=== PATIENT | female | born 1985 | race Caucasian/White ===

== ENCOUNTER 2017-10-04 09:02 | Emergency (ER) | payer OTHER ==
[2017-10-04 09:07] VITALS: O2SAT 99
--- NOTE | 2017-10-04 09:22 | ERPHSYRPT ---
- History of Present Illness Time Seen by Provider: 10/04/17 09:17 Source: patient Exam Limitations: no limitations Patient Subjective Stated Complaint: PT STATES SHE DEVELOPED A TOOTHACHE ON . STATES SHE WOKE UP THIS MORNING WITH RIGHT FACIAL SWELLING. Triage Nursing Assessment: PT PINK, WARM, DRY. EDEMA NOTED TO RIGHT FACE. PT AFEBRILE. Physician History: The patient is a 32-year-old female complaining of increasing dental pain since yesterday. This morning she has some mild facial swelling as well. She has very poor dentition. Her past medical history is unremarkable except for episodes of dental pain and dental abscesses. Timing/Duration: gradual onset Severity: severe ENT Location: dental Prearrival Treatment: over the counter meds Modifying Factors: Improves With: nothing Associated Symptoms: facial pain/swelling, tooth pain Allergies/Adverse Reactions: Penicillins Allergy (Verified 10/04/17 09:07) Hx Tetanus, Diphtheria Vaccination/Date Given: Yes (UP TO DATE) Hx Influenza Vaccination/Date Given: No Hx Pneumococcal Vaccination/Date Given: No Immunizations Up to Date: Yes - Review of Systems Constitutional: No Fever, No Chills Eyes: No Symptoms Ears, Nose, & Throat: Mouth Pain Respiratory: No Cough, No Dyspnea Cardiac: No Chest Pain, No Edema, No Syncope Abdominal/Gastrointestinal: No Abdominal Pain, No Nausea, No Vomiting, No Diarrhea Genitourinary Symptoms: No Dysuria Musculoskeletal: No Back Pain, No Neck Pain Skin: No Rash Neurological: No Dizziness, No Focal Weakness, No Sensory Changes Psychological: No Symptoms Endocrine: No Symptoms Hematologic/Lymphatic: No Symptoms Immunological/Allergic: No Symptoms All Other Systems: Reviewed and Negative - Past Medical History Pertinent Past Medical History: No - Past Surgical History Past Surgical History: Yes Female Surgical History: Tubal Ligation, Other - Social History Smoking Status: Current every day smoker How long have you smoked: 21 Exposure to second hand smoke: No Drug Use: none Patient Lives Alone: No - Female History Hx Last Menstrual Period: SEP 26 Hx Now: No - Nursing Vital Signs Nursing Vital Signs: Initial Vital Signs Temperature 99.2 F 10/04/17 09:03 Pulse Rate 100 H 10/04/17 09:03 Respiratory Rate 20 10/04/17 09:03 Blood Pressure 130/59 10/04/17 09:03 O2 Sat by Pulse Oximetry 99 10/04/17 09:03 Pain Scale Pain Intensity 9 - Physical Exam General Appearance: moderate distress Eye Exam: bilateral eye: normal inspection Ear Exam: bilateral ear: auricle normal Nasal Exam: normal inspection Throat Exam: dental tenderness (very poor dentition. tenderness to right upper incisor with surrounding red and swollen gums.), maxillary swelling Neck Exam: supple Cardiovascular/Respiratory Exam: normal breath sounds, regular rate/rhythm Abdominal Exam: non-tender, soft Neurologic Exam: alert, oriented x 3, sensation nml, No motor deficits Skin Exam: normal color, warm, dry SpO2 Interpretation: normal SpO2: 99 Oxygen Delivery: Room Air - Departure Time of Disposition: 09:25 Departure Disposition: Home Clinical Impression: Dental abscess Clinical Impression: (Ruled Out): Dental implant pain Condition: Stable Critical Care Time: No Additional Instructions: You have a dental abscess. Take clindamycin 300 mg 4 times a day for 10 days. Take Tylenol No. 3 one tablet every 4-6 hours as needed for pain. Continue to take ibuprofen 800 mg every 8 hours as needed. Follow-up as soon as you can with a dentist. Prescriptions: Clindamycin HCl 1 cap PO QID #40 capsule Codeine Phosphate/APAP #3 [Tylenol #3 Tablet] 1 tab PO Q4-6HPRN PRN #10 tablet PRN Reason: Pain
[2017-10-04 09:45] VITALS: BP 132/78; PULSE 97
== END 2017-10-04 09:45 | disposition home or self-care (01) ==
LOC: ED 09:02
DX: K04.7 Periapical abscess without sinus (principal)
CPT/HCPCS: 99283

== ENCOUNTER 2017-10-06 14:54 | Emergency (ER) | payer OTHER ==
[2017-10-06] MEDS ORDERED: CLEOCIN 150 MG CAPSULE PO ONE (15:08)
[2017-10-06] MEDS ORDERED: NORCO 5/325 MG PO ONE (15:08)
--- NOTE | 2017-10-06 15:14 | ERPHSYRPT ---
- History of Present Illness Time Seen by Provider: 10/06/17 14:59 Source: patient Physician History: CC: tooth abscess hx: 32 y/o patient with right sided toothache and abscess with right facial swelling and pain. She is a smoker. Not . Pain is worse and severe. She had PCN allergy as a child. She was here two days ago and was given Rx for cleocin and codiene. Did not fill the cleocin as her insurance was ineffective. No fever or chills. She has no dentist. No diff breathing or swallowing. Allergies/Adverse Reactions: Penicillins Allergy (Verified 10/06/17 15:14) Hx Tetanus, Diphtheria Vaccination/Date Given: Yes (UP TO DATE) Hx Influenza Vaccination/Date Given: No Hx Pneumococcal Vaccination/Date Given: No - Review of Systems Constitutional: Malaise, No Fever Ears, Nose, & Throat: Mouth Pain, Mouth Swelling Respiratory: No Dyspnea Abdominal/Gastrointestinal: No Vomiting, No Diarrhea Skin: No Rash Neurological: No Headache All Other Systems: Reviewed and Negative - Past Medical History Pertinent Past Medical History: No - Past Surgical History Past Surgical History: Yes Female Surgical History: Tubal Ligation, Other - Social History Smoking Status: Current every day smoker How long have you smoked: 21 Exposure to second hand smoke: No Drug Use: none Patient Lives Alone: No - Nursing Vital Signs Nursing Vital Signs: Initial Vital Signs Temperature 98.3 F 10/06/17 15:09 Pulse Rate 99 H 10/06/17 15:09 Respiratory Rate 16 10/06/17 15:09 Blood Pressure 132/89 10/06/17 15:09 O2 Sat by Pulse Oximetry 99 10/06/17 15:09 Pain Scale Pain Intensity 7 - Physical Exam General Appearance: alert Eye Exam: bilateral eye: PERRL, EOMI (no double vision) Nasal Exam: normal inspection Throat Exam: pharynx normal Neck Exam: supple, full range of motion Cardiovascular/Respiratory Exam: normal breath sounds, regular rate/rhythm Neurologic Exam: alert, oriented x 3, cooperative Skin Exam: warm, dry Comments: right facial swelling and tenderness without eduardo erythema and no crepitus. - Course Nursing assessment & vital signs reviewed: Yes Ordered Tests: Medication Summary Discontinued Medications Generic Name Dose Route Start Last Admin Trade Name Freq PRN Reason Stop Dose Admin Hydrocodone Bitart/Acetaminophen 1 tab 10/06/17 15:08 10/06/17 15:20 [place] 5/325 Mg PO 10/06/17 15:09 1 tab STAT ONE Administration Hydrocodone Bitart/Acetaminophen Confirm 10/06/17 15:19 [place] 5/325 Mg Administered 10/06/17 15:20 Dose 1 tab .ROUTE .STK-MED ONE Clindamycin HCl 300 mg 10/06/17 15:08 10/06/17 15:20 Cleocin 150 Mg Capsule PO 10/06/17 15:09 300 mg STAT ONE Administration Clindamycin HCl Confirm 10/06/17 15:19 Cleocin 150 Mg Capsule Administered 10/06/17 15:20 Dose 300 mg .ROUTE .STK-MED ONE - Progress Progress Note: 10/06/17 15:13 She has apparent dental abscess. She is a smoker. Could n0t start clindamicin so is worse without abtx. She declines CT and IV at this time. Explained need for abtx and dental follow up. 10/06/17 15:27 Called [facility] and they ran her HIP insurance and called for a BIN number. She can now afford Rx. She declines IV or CT. Will release with advise for dental follow up and cleocin. Counseled pt/family regarding: diagnosis, need for follow-up - Departure Time of Disposition: 15:28 Departure Disposition: Home Clinical Impression: odontogenic abscess, Smoker Condition: Stable Critical Care Time: No Referrals: DOCTOR,NO FAMILY [Primary Care Provider] - Instructions: Dental Pain, Tooth Decay Additional Instructions: See dentist in 1-2 days. Get clindamicin Rx from [facility] now. Ibuprofen as previously directed. Return for double vision, trouble breathing, trouble swallowing or problems.
[2017-10-06 15:15] VITALS: BP 132/89; PULSE 99; O2SAT 99
[2017-10-06] MEDS ORDERED: CLEOCIN 150 MG CAPSULE ONE (15:19)
[2017-10-06] MEDS ORDERED: NORCO 5/325 MG ONE (15:19)
== END 2017-10-06 15:54 | disposition home or self-care (01) ==
LOC: ED 14:54
DX: K04.7 Periapical abscess without sinus (principal); F17.200 Nicotine dependence, unspecified, uncomplicated
CPT/HCPCS: 99283; A9270-GY

== ENCOUNTER 2019-06-24 17:53 | Emergency (ER) | payer MEDICAID, OTHER ==
[2019-06-24 17:59] VITALS: BP 115/92; PULSE 97; O2SAT 98
--- NOTE | 2019-06-24 18:11 | ERPHSYRPT ---
- History of Present Illness Time Seen by Provider: 06/24/19 18:10 Source: patient, family Exam Limitations: no limitations Patient Subjective Stated Complaint: Pt states "I was bit by a dog." Triage Nursing Assessment: Pt presented alert and oriented X 3, skin pwd Pt ambulates with an uprigth steady gait, able to speak in clear full sentencs. Pt in no apparent respiratory distress. Pt has punctures to left and left leg and buttock Physician History: 34 y/o white female methamphetamine user presents after dog bite to forearm and buttock. 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 pt also has pain in left wrist. pt is allergic to pcn. pt has had keflex in past without issues. dogs immunizations utd 03/02/19. Timing/Duration: today Quality: painful Severity: moderate Location: extremities, other (buttock) Possible Causes: other (dog bite) Associated Symptoms: other (painful dog bite sites) Allergies/Adverse Reactions: Penicillins Allergy (Verified 10/06/17 15:14) Hx Tetanus, Diphtheria Vaccination/Date Given: No Hx Influenza Vaccination/Date Given: No Hx Pneumococcal Vaccination/Date Given: No Immunizations Up to Date: Yes - Review of Systems Constitutional: No Symptoms Eyes: No Symptoms Ears, Nose, & Throat: No Symptoms Respiratory: No Symptoms Cardiac: No Symptoms Abdominal/Gastrointestinal: No Symptoms Genitourinary Symptoms: No Symptoms Musculoskeletal: No Symptoms Skin: No Symptoms Neurological: No Symptoms Psychological: No Symptoms Endocrine: No Symptoms Hematologic/Lymphatic: No Symptoms Immunological/Allergic: No Symptoms All Other Systems: Reviewed and Negative - Past Medical History Pertinent Past Medical History: No Neurological History: No Pertinent History ENT History: No Pertinent History Cardiac History: No Pertinent History Respiratory History: No Pertinent History Endocrine Medical History: No Pertinent History Musculoskeletal History: No Pertinent History GI Medical History: No Pertinent History History: No Pertinent History Psycho-Social History: No Pertinent History Female Reproductive Disorders: No Pertinent History - Past Surgical History Past Surgical History: Yes Neuro Surgical History: No Pertinent History Cardiac: No Pertinent History Respiratory: No Pertinent History Gastrointestinal: No Pertinent History Genitourinary: No Pertinent History Musculoskeletal: No Pertinent History Female Surgical History: Tubal Ligation, Other - Social History Smoking Status: Current every day smoker How long have you smoked: years Exposure to second hand smoke: Yes Drug Use: methamphetamines Patient Lives Alone: No - Female History Hx Last Menstrual Period: 06/24/2019 Hx Now: No - Nursing Vital Signs Nursing Vital Signs: Initial Vital Signs Temperature 99.4 F 06/24/19 17:55 Pulse Rate 97 H 06/24/19 17:55 Respiratory Rate 20 06/24/19 17:55 Blood Pressure 115/92 06/24/19 17:55 O2 Sat by Pulse Oximetry 98 06/24/19 17:55 Pain Scale Pain Intensity 7 - Physical Exam General Appearance: mild distress, alert, anxiety Eye Exam: PERRL/EOMI, eyes nml inspection Ears, Nose, Throat Exam: normal ENT inspection, moist mucous membranes Neck Exam: normal inspection, non-tender, supple, full range of motion Respiratory Exam: No chest tenderness Pelvic Exam: not done Rectal Exam: not done Back Exam: normal inspection, normal range of motion, No CVA tenderness, No vertebral tenderness Extremity Exam: tenderness, other (several dog bite puncture sites left wrist and forearm and left hip/lateral buttock) Neurologic Exam: alert, oriented x 3, cooperative, 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 tested, normal mood/affect, nml cerebellar function, nml station & gait, sensation nml Skin Exam: other (see above extremity exam) Lymphatic Exam: No adenopathy SpO2 Interpretation: normal SpO2: 98 O2 Delivery: Room Air Ordered Tests: Active Orders 24 hr Category Date Time Status WRIST (MIN 3 VIEWS) Stat Exams 06/24/19 18:25 Ordered Medication Summary Discontinued Medications Generic Name Dose Route Start Last Admin Trade Name Kaykay PRN Reason Stop Dose Admin Hydrocodone Bitart/Acetaminophen 1 tab 06/24/19 18:24 [place] 5/325 Mg PO 06/24/19 18:25 STAT ONE Hydrocodone Bitart/Acetaminophen Confirm 06/24/19 18:30 [place] 5/325 Mg Administered 06/24/19 18:31 Dose 1 tab .ROUTE .STK-MED ONE Ceftriaxone Sodium 1,000 mg 06/24/19 18:24 Rocephin 1000 Mg Inj IM 06/24/19 18:25 STAT ONE Ceftriaxone Sodium Confirm 06/24/19 18:31 Rocephin 1000 Mg Inj Administered 06/24/19 18:32 Dose 1,000 mg .ROUTE .STK-MED ONE Doxycycline Hyclate 100 mg 06/24/19 18:27 Vibramycin 100 Mg PO 06/24/19 18:28 STAT ONE Doxycycline Hyclate Confirm 06/24/19 18:31 Vibramycin 100 Mg Administered 06/24/19 18:32 Dose 100 mg .ROUTE .STK-MED ONE Lidocaine HCl Confirm 06/24/19 18:31 Xylocaine 1% Hcl 20 Ml Mdv Administered 06/24/19 18:32 Dose 2 ml .ROUTE .STK-MED ONE - Progress Progress: unchanged Progress Note: 06/24/19 18:55 xray left wrist-no acute fx or dislocation Counseled pt/family regarding: diagnosis, rad results - Departure Departure Disposition: Home Clinical Impression: Dog bite of buttock, Dog bite of forearm without complication Condition: Stable Critical Care Time: No Referrals: DOCTOR,NO FAMILY [Primary Care Provider] - Forms: Work/School Release Form Prescriptions: Hydrocodone/APAP 5/325 [[place] 5/325 mg] 1 each PO Q8H PRN PRN #9 tablet MDD 3 PRN Reason: Pain Doxycycline Hyclate 100 mg [Vibramycin 100 MG] 100 mg PO BID #14 tab Metronidazole 500 mg [Flagyl 500 MG] 500 mg PO TID #21 tablet
[2019-06-24] MEDS ORDERED: NORCO 5/325 MG PO ONE (18:24)
[2019-06-24] MEDS ORDERED: Rocephin 1000 MG INJ IM ONE (18:24)
[2019-06-24] MEDS ORDERED: Vibramycin 100 MG PO ONE (18:27)
[2019-06-24] MEDS ORDERED: NORCO 5/325 MG ONE (18:30)
[2019-06-24] MEDS ORDERED: Rocephin 1000 MG INJ ONE (18:31)
[2019-06-24] MEDS ORDERED: XYLOCAINE 1% HCL 20 ML MDV ONE (18:31)
[2019-06-24] MEDS ORDERED: Vibramycin 100 MG ONE (18:31)
--- NOTE | 2019-06-25 08:40 | XRAY ---
Indication: Dog bite. Comparison: None 3 views of the left wrist demonstrates mild distal forearm soft tissue swelling anterolaterally. No other bony, articular, or soft tissue abnormalities.
== END 2019-06-24 19:34 | disposition home or self-care (01) ==
LOC: ED 17:53
DX: S31.823A Puncture wound without foreign body of left buttock, initial encounter (principal); S61.532A Puncture wound without foreign body of left wrist, initial encounter; S51.832A Puncture wound without foreign body of left forearm, initial encounter; S71.032A Puncture wound without foreign body, left hip, initial encounter; W54.0XXA Bitten by dog, initial encounter; Y93.89 Activity, other specified; Y92.9 Unspecified place or not applicable; F15.90 Other stimulant use, unspecified, uncomplicated
CPT/HCPCS: 73110; 96372; 99284; J0696; A9270-GY